=== PATIENT | female | born 1990 | race Two or more races ===

== ENCOUNTER 2021-04-25 08:31 | Emergency (ER) | payer MEDICAID, OTHER ==
[~2021-04-25] VITALS: Ht 157.5 cm; Wt 49.4 kg
[2021-04-25 08:50] VITALS: BP 133/78
== END 2021-04-25 09:15 | disposition home or self-care (01) ==
LOC: ER 08:31
DX: S90.122A Contusion of left lesser toe(s) without damage to nail, initial encounter (principal); E03.9 Hypothyroidism, unspecified; Z88.1 Allergy status to other antibiotic agents; X58.XXXA Exposure to other specified factors, initial encounter; Y93.89 Activity, other specified; Y92.89 Other specified places as the place of occurrence of the external cause; Y99.8 Other external cause status